=== PATIENT | female | born 1955 | race Caucasian/White ===

== ENCOUNTER → 2017-01-30 | Outpatient (CLI) | payer OTHER | LOC: MMPC 11:11 | PROVIDERS: ATTEND Physician Assistant | DX: B34.9 Viral infection, unspecified (principal) | CPT/HCPCS: 99213; G0463 ==

== ENCOUNTER 2017-04-03 01:40 | Inpatient (IN) | payer OTHER ==
[2017-04-03] MEDS ORDERED: ONDANSETRON 4 MG/2 ML VIAL IVP ONE (02:00)
[2017-04-03] MEDS ORDERED: NORMAL SALINE 10 ML SYRINGE FLUSH IVP PRN ×2 (02:00→05:09)
--- NOTE | 2017-04-03 02:02 | PDOC ---
General Adult HPI - General Chief Complaint: General Medical Stated Complaint: Nausea/Abdominal Discomfort Date Seen by Provider: 04/03/17 Time Seen by Provider: 02:02 - History of Present Illness Have you received a tetanus shot in the past 10 years?: Yes - Patient Home Medications Home Medications: Home Medications Paliperidone Palmitate [Invega Sustenna] 39 mg IM MONTHLY ml 01/30/17 RisperiDONE Tab [Risperdal Tab] 1 mg PO BEDTIME tab 01/30/17 - Patient Allergies Allergies/Adverse Reactions: Allergies Allergy/AdvReac Type Severity Reaction Status Date / Time Sulfa (Sulfonamide Allergy rash Verified 04/03/17 01:56 Antibiotics) Past Medical History - heen HEENT History: Denies History Cardiovascular History: Denies History Respiratory History: Denies History Gastrointestinal History: Denies History Genitourinary History: Denies History Endocrine History: Denies History Musculoskeletal History: Denies History Prosthesis or Implant: No Neurological History: Denies History Blood Disorders: Denies History Psychiatric History: Bi Polar Disorder, Other (please comment) Additional Psychiatric History: PER [facility] PSYCHOSIS. 04/21/14 381 HOLD History of Sexually Transmitted Diseases: No Cancer History: Denies History History of MDRO: No History of Other Communicable Diseases: No Alcohol Use: None Substance Use Type: None Previous Surgical History: Yes Type / Date of Surgery: [place] teeth extraction. Anesthesia Reactions: No Malignant Hyperthermia: No Significant Family History: No pertinent family hx Past Medical History Reviewed: Reviewed - No Changes ROS - Limitations ROS Limitations: No Limitations Constitution: REPORTS: Denies Symptoms Cardiovascular: REPORTS: Denies Cardiac Symptoms Respiratory: REPORTS: Denies Resp Symptoms Neurological: REPORTS: Denies Neuro Symptoms General Adult Exam - General Appearance General Appearance: POSITIVE: Alert, Cooperative, No Acute Distress - HEENT HEENT: POSITIVE: Head Inspection Nml, Eyes Inspection Nml - Neck Neck: POSITIVE: Normal Inspection - Respiratory Respiratory: POSITIVE: No Respiratory Distress - Cardiovascular Cardiovascular: POSITIVE: Regular Rate & Rhythm, No Murmur - Abdomen Abdomen: Soft: (All Quadrants), Normal Bowel Sounds: (All Quadrants), Denies Tenderness: (LLQ) (mild without rebound or gaurding), No Guarding: (All Quadrants), No Rebound: (All Quadrants) - Back Back: POSITIVE: Normal Inspection. NEGATIVE: CVA Tenderness - Neurological / Psychological Neurological: POSITIVE: Affect Apporpriate General Adult Progress - Results Reviewed by me Lab Results Reviewed: Yes Lab Results:: Laboratory Results 04/03/17 Range/Units 02:03 WBC 12.79 H (4.8-10.8) 10^3/uL RBC 4.75 (4.20-5.40) 10^6/uL Hgb 13.9 (12.0-16.0) g/dL Hct 42.2 (37.0-47.0) % MCV 88.8 (81-99) FL MCH 29.3 (27-31) PG MCHC 32.9 L (33-37) g/dL RDW Std Deviation 46.9 (39-50) fL RDW Coeff of Fransisca 14.8 H (11.5-14.5) % Plt Count 266 (140-350) 10*3/uL MPV 9.9 (7.4-12.2) FL Immature Gran % (Auto) 0.3 (0-5) % Neut % (Auto) 79.5 (50-80) % Lymph % (Auto) 13.3 (10-50) % [place] % (Auto) 6.5 (5-15) % Eos % (Auto) 0.2 (0-8) % Baso % (Auto) 0.2 (0-1) % Immature Gran # (Auto) 0.04 10*3/UL Neut # (Auto) 10.17 10*3/UL Lymph # (Auto) 1.70 10*3/uL [place] # (Auto) 0.83 H (0.3-0.8) 10*3/UL Eos # (Auto) 0.02 10*3/UL Baso # (Auto) 0.03 10*3/UL WBC Morphology Comment Normal morphology (NORM) Plt Morphology Comment Normal morphology (NORM) RBC Morph Comment Normal morphology (NORM) - Patient's Progress MDM / ED Course: Patient was given a dose of Zofran and a couple liters of IV fluids and is feeling much better. Her abdominal pain is basically completely resolved she has no nausea and is wanting to go home. Her CBC did show a slight elevation in her white blood cell count but given the regression in remission of her pain is seems unlikely that she has any significant intra-abdominal pathology and that this would likely be simply be margination or stress response from her gastroenteritis or from vomiting. Ultimately I have told her if her symptoms worsen at all she is to return for consideration of CT scan of her abdomen but she is able to start eating and drinking and for belly continues to improve then no further imaging should be required. Patient Care Time - Estimated PCT Patient Care Time (In Minutes): 35 Vital Signs - VS Reviewed Vital Signs Reviewed: Yes Discharge Clinical Impression: Gastroenteritis Discharge Disposition: Discharged to Home Condition: Stable Additional Instructions: Monitor symptoms closely be evaluated by her primary care provider or return to the emergency department for abdominal pain increases worsens or for unable to advance her diet to regular over the next few days. Return if your symptoms worsen such as abdominal pain cramping or other worrisome issues Follow-up with your primary care provider as soon as possible to discuss this occurrence Use Zofran as needed for nausea
[2017-04-03] MEDS: Sodium Chloride 0.9% 2,000 ML PRIMARY IV ONE ×2 (02:15→03:49)
[2017-04-03 02:24] LABS: BASOPHILS # (AUTO) 0.03 10*3/UL; BASOPHILS % (AUTO) 0.2 % (0-1); EOSINOPHILS # (AUTO) 0.02 10*3/UL; EOSINOPHILS % (AUTO) 0.2 % (0-8); HEMATOCRIT 42.2 % (37.0-47.0); HEMOGLOBIN 13.9 g/dL (12.0-16.0); MEAN CORPUSCULAR HEMOGLOBIN 29.3 PG (27-31); MEAN CORPUSCULAR HGB CONC 32.9 g/dL (33-37); MEAN CORPUSCULAR VOLUME 88.8 FL (81-99); MEAN PLATELET VOLUME 9.9 FL (7.4-12.2); MONOCYTES # (AUTO) 0.83 10*3/UL (0.3-0.8); MONOCYTES % (AUTO) 6.5 % (5-15); NEUTROPHILS # (AUTO) 10.17 10*3/UL; NEUTROPHILS % (AUTO) 79.5 % (50-80); RED BLOOD COUNT 4.75 10^6/uL (4.20-5.40)
[2017-04-03 02:25] LABS: PLATELET MORPHOLOGY COMMENT NORMAL MORPHOLOGY (NORM); RBC MORPHOLOGY COMMENT NORMAL MORPHOLOGY (NORM); WBC MORPHOLOGY COMMENT NORMAL MORPHOLOGY (NORM)
[2017-04-03 02:30] LABS: BLOOD UREA NITROGEN 12 mg/dL (7-22); BUN/CREATININE RATIO 13.33 (6-20); CALCIUM 8.9 mg/dL (8.7-10.7); EST GLOMERULAR FILTRATION > 60 (>60 ml/min/1.73m(2)); SERUM ALBUMIN 3.8 g/dL (3.5-4.8)
[2017-04-03 03:26] LABS: LIPASE 33241 IU/L (23-300)
[2017-04-03] MEDS ORDERED: MORPHINE SULFATE 4 MG/1 ML IVP ONE (03:33)
[2017-04-03 04:00] LABS: CHOL/HDL RATIO 2.9 RATIO (0-4.0); LDL CHOLESTEROL,CALCULATED 82.6 mg/dL
[2017-04-03] MEDS ORDERED: Sodium Chloride 0.9% 1,000 ML PRIMARY IV ONE (04:07)
[2017-04-03] MEDS ORDERED: HEPARIN 5000 UNIT/1 ML SUBCUT SCH (05:00)
[2017-04-03] MEDS ORDERED: LIDOCAINE W/ SODIUM BICARB 0.5 ML SYR SUBD PRN (05:09)
[2017-04-03] MEDS ORDERED: MORPHINE SULFATE 2 MG/1 ML IVP PRN (05:09)
[2017-04-03] MEDS ORDERED: ONDANSETRON 4 MG/2 ML VIAL IVP PRN (05:09)
--- NOTE | 2017-04-03 05:11 | DI ---
HISTORY: Pancreatitis. TECHNIQUE: Sonographic images of the abdomen were obtained and submitted for interpretation. FINDINGS: The liver is unremarkable in size and sonographic texture. No focal lesions are identifie d within the liver. No gallstones are identified. There is a small gallbladder polyp demonstrated. The gallbladder is not abnormally distended, and the gallbladder wall does not appear thickened. Th e intrahepatic and extrahepatic biliary systems are not dilated. The common bile duct is normal at 3 mm. The spleen is not enlarged. The pancreas appears echogenic. The visualized portions of the ao rta, and IVC are sonographically unremarkable. The kidneys are in anatomic position and are unremarkable in size, parenchymal thickness, and sonogra phic texture. There is no hydronephrosis, stone, or solid renal mass. The perinephric spaces are un remarkable. No mass or free fluid is identified in the upper abdomen. IMPRESSION: 1. Small gallbladder polyp. 2. Echogenic pancreas is a nonspecific finding. NOTE: The interpreting Radiologist was not present at the time of ultrasound interrogation.
[2017-04-03] MEDS: Sodium Chloride 0.9% 1,000 ML PRIMARY IV SCH ×2 (05:23→14:37)
[2017-04-03 06:59] LABS: AMPHETAMINE SCREEN NEGATIVE (NEG); CANNABINOID SCREEN,URINE NEGATIVE (NEG); COCAINE SCREEN NEGATIVE (NEG); METHADONE URINE SCREEN NEGATIVE (NEG); METHAMPHETAMINES SCREEN,URINE NEGATIVE (NEG); OPIATE SCREEN,URINE NEGATIVE (NEG); URINE SAMPLE TYPE CLEAN CATCH URINE; URINE SPECIFIC GRAVITY - MAN 1.021
--- NOTE | 2017-04-03 08:17 | PDOC ---
History and Physical - History of Present Illness History of Present Illness: This is a very nice 62-year-old female who [facility] with [facility] for a schizoaffective disorder on Risperdal when necessary and invega sustenna for schizophrenia. She is also a heavy smoker of 30 cigarettes a day. Comes in with some abdominal pain. Received some fluid and antiemetics patient improved in the ER for her lipase was 33,000 with elevated amylase and therefore was admitted. Ultrasound of her abdomen was done which is on unremarkable and LFTs are also normal. I have ordered a CT scan abdomen and pelvis which is pending and also repeat lipase considering that patient has almost no pain with this high level of lipase. I explained to her and her manager of case management what the pancreatitis is in the causes and treatment they agree with the above plan of nothing by mouth and fluids Past Medical History Medical History: Schizophrenia Tobacco Use: Current Every Day Smoker Do you dip or chew tobacco: No Substance Use Type: None Medication / Allergies Home Medications: Home Medications Medication Instructions Recorded Confirmed Type Paliperidone Palmitate [Invega 39 mg IM MONTHLY ml 01/30/17 04/03/17 History Sustenna] RisperiDONE Tab [Risperdal Tab] 1 mg PO BEDTIME tab 01/30/17 04/03/17 History Ondansetron Odt [Zofran Odt] 8 mg PO Q6H PRN #10 tab.rapdis 04/03/17 Rx Allergies/Adverse Reactions: Allergies Allergy/AdvReac Type Severity Reaction Status Date / Time Sulfa (Sulfonamide Allergy rash Verified 04/03/17 06:41 Antibiotics) Review of Systems - Eye Exam Eye Exam: DENIES: Negative System Review, Acuity Good, Acuity Fair, Acuity Poor , Glasses/Contacts, Vision Loss, Blurring, Redness, Diplopia, Catarats, Other, See HPI - Ear/Nose Exam Ear/Nose Exam: DENIES: Negative System Review, Decreased Hearing, Tinnitus, Otalgia, Sinus Pain, Rhinorrhea, Congestion, Anosmia, Epistaxis, Other, See HPI - Mouth/Throat Mouth/Throat Exam: DENIES: Negative System Review, Dental Problems, Oral Ulcers , Sore Throat, Hoarseness, Dysphagia, Dental Pain, Other, See HPI - Cardiovascular Cardiovascular: DENIES: Negative System Review, Chest Pain, Edema, Syncope, Palpitations, Orthopnea, Paroxysmal Nocturnal Dyspnea, Other, See HPI - Gastrointestinal Gastrointestinal / Abdominal: REPORTS: Nausea, Abdominal Pain - Neurological Neurologic: DENIES: Negative System Review, Headache, Numbness/Paresthesia, Tremors, Weakness, Seizures, Head Trauma, LOC, Dizziness, Confusion, Memory Loss , Difficulty Walking, Incoordination, Other, See HPI - Psychiatric Psychiatric: DENIES: Anhedonia, Anxiety, Depressed, Hopelessness, Hospitalization, Negative System Review, Other, Panic, Sadness, See HPI, Suicidality, Tearfullness Exam - Vitals Vital Signs: Vital Signs Temperature 98.9 F Temperature Source Temporal Artery Scan Pulse Rate [Pulse Oximeter] 78 Pulse Rate 80 Respiratory Rate 20 Blood Pressure [Right Arm] 130/82 Blood Pressure 150/78 Pulse Ox 93 Oxygen Delivery Method Room Air Height 4 ft 9 in Weight 43.091 kg - General General Appearance: POSITIVE: No Acute Distress, Cooperative - Head Head Exam: POSITIVE: Normal Inspection, Normocephalic, Atraumatic - Eye Eye Exam: POSITIVE: Normal Appearance, PERRL - Neck Neck Exam: POSITIVE: Normal Inspection - Respiratory Respiratory Exam: POSITIVE: Clear to Auscultation - Bilaterally, Breathing Non Labored, Normal To Percussion - Cardiovascular Cardiovascular Exam: POSITIVE: RRR, No Murmur, No Clicks, No Gallops - GI/Abdominal Additional GI/Abdominal Exam Details: Minimal tenderness no guarding or rebound - Extremities Extremities Exam: POSITIVE: Normal Capillary Refill, No Clubbing Present, No Edema Present - Neurological Neurological Exam: POSITIVE: Alert, Oriented x 3, CN II-XII Intact, No Facial Droop, Speech Intact / Clear - Psychiatric Psychiatric Exam: POSITIVE: Normal Affect Results - Labs CBC and BMP: 04/03/17 02:03 04/03/17 02:03 Labs - Last 24 Hours: Laboratory Results 04/03/17 Range/Units 06:07 Ur Collection Type Clean catch urine U Specif Grav (Refrac) 1.021 Urine Opiates Screen Negative (NEG) Ur Buprenorphine Negative (NEG) Ur Oxycodone Screen Negative (NEG) Urine Methadone Screen Negative (NEG) Ur Propoxyphene Screen Negative (NEG) Barbiturate Screen Negative (NEG) U Tricyclic Antidepress Negative (NEG) Phencyclidine Screen Negative (NEG) Amphetamines Screen Negative (NEG) U Methamphetamines Scrn Negative (NEG) Benzodiazepines Screen Negative (NEG) Cocaine Screen Negative (NEG) U Marijuana (THC) Screen Negative (NEG) Assessment and Plan - Patient Problems (1) Pancreatitis Current Visit: Yes Status: Acute Comment: Patient does not drink, alcohol level is below 10, triglycerides are within normal limits, ultrasound of her gallbladder shows no stones, labs are unremarkable LFTs, elevated lipase at 33,000 pain is minimal we'll repeat labs to make sure this is not an error were also order a CT abdomen and pelvis IV fluids and by mouth pain control (2) Bipolar disorder Current Visit: No Status: Acute
--- NOTE | 2017-04-03 09:19 | DI ---
CT ABD W/CN AND PELVIS W/CN,04/03/2017 8:08 AM: Clinical History: Abdominal pain and pancreatitis. Previous Exam: None at this facility. Findings: Multiple helically acquired CT images are obtained through the abdomen and pelvis following the intra venous administration of 65 cc of Isovue 300, and demonstrate clear lung bases. There is subsegmental atelectasis in the lung bases as well. The liver, gallbladder, spleen and adrenals are unremarkable. There is some fluid surrounding the herring creas although there is no evidence of pseudocyst or abscess. There is a dense cyst which appears to be involving the inferior pole of the left kidney, but also co ntacts the tail the pancreas. This measures 61 Hounsfield units. This cyst measures 2.2 cm in long ax is. There are multiple other renal hypodensities noted most of which are too small to characterize, but l ikely represent small simple cysts. The gallbladder is unremarkable. There is a trace amount of free fluid within the deep pelvis. The urinary bladder is unremarkable. Phleboliths are seen within the deep pelvis as well. The appendix is normal. The uterus is not well evaluated. Impression: 1. Trace amount of peripancreatic free fluid. Likely represents underlying pancreatitis however, ther e is no evidence of abscess nor pseudocyst. 2. Dense 2 cm left renal cyst in close approximation to the tail the pancreas, but this is believed t o be primary to the kidney. Consider a [address] for further evaluation. This would not be nec essary if there is a noncontrast image or if this has been worked up in the past.
[2017-04-03] MEDS: HEPARIN 5000 UNIT/1 ML SUBCUT SCH ×2 (09:56→17:42)
[2017-04-03] MEDS ORDERED: LORazepam 2 MG/1 ML VIAL IVP ONE (14:19)
[2017-04-03] MEDS ORDERED: NICOTINE 21 MG /DAY PATCH TRANSDERM SCH (14:30)
[2017-04-03] MEDS ORDERED: LORazepam 2 MG/1 ML VIAL IVP PRN (15:09)
[2017-04-04] MEDS: Sodium Chloride 0.9% 1,000 ML PRIMARY IV SCH ×2 (00:14→10:00)
[2017-04-04] MEDS: HEPARIN 5000 UNIT/1 ML SUBCUT SCH ×2 (02:31→08:34)
[2017-04-04 06:01] LABS: BASOPHILS # (AUTO) 0.03 10*3/UL; BASOPHILS % (AUTO) 0.3 % (0-1); EOSINOPHILS # (AUTO) 0.01 10*3/UL; EOSINOPHILS % (AUTO) 0.1 % (0-8); HEMATOCRIT 41.7 % (37.0-47.0); HEMOGLOBIN 13.4 g/dL (12.0-16.0); LYMPHOCYTES # (AUTO) 1.64 10*3/uL; MEAN CORPUSCULAR HEMOGLOBIN 29.2 PG (27-31); MEAN CORPUSCULAR HGB CONC 32.1 g/dL (33-37); MEAN CORPUSCULAR VOLUME 90.8 FL (81-99); MEAN PLATELET VOLUME 9.7 FL (7.4-12.2); MONOCYTES % (AUTO) 5.6 % (5-15); NEUTROPHILS # (AUTO) 6.77 10*3/UL; NEUTROPHILS % (AUTO) 75.5 % (50-80); RED BLOOD COUNT 4.59 10^6/uL (4.20-5.40)
[2017-04-04 06:09] LABS: BLOOD UREA NITROGEN 13 mg/dL (7-22); BUN/CREATININE RATIO 16.25 (6-20); CALCIUM 8.7 mg/dL (8.7-10.7); EST GLOMERULAR FILTRATION > 60 (>60 ml/min/1.73m(2)); LIPASE 753 IU/L (23-300); SERUM ALBUMIN 3.6 g/dL (3.5-4.8)
[2017-04-04 07:38] LABS: PLATELET MORPHOLOGY COMMENT NORMAL MORPHOLOGY (NORM); RBC MORPHOLOGY COMMENT NORMAL MORPHOLOGY (NORM); WBC MORPHOLOGY COMMENT NORMAL MORPHOLOGY (NORM)
[2017-04-04 08:01] VITALS: RESP 16
[2017-04-04] MEDS ORDERED: Patch Removal PATCH TRANSDERM SCH (09:00)
[2017-04-04] MEDS ORDERED: NICOTINE 21 MG /DAY PATCH TRANSDERM SCH ×2 (09:00)
[2017-04-04] MEDS: D5W 1,000 ML PRIMARY IV SCH ×2 (10:06→13:15)
--- NOTE | 2017-04-04 12:01 | PDOC(PROG) ---
Interval History: Patient feels great and has no complaints she thinks she feels much better and is back to her normal self we advanced her diet to clear and as tolerated her lipase is down to 600 nor abdominal pain whatsoever Objective : Data - Labs CBC and BMP: 04/04/17 05:55 04/04/17 05:55 Labs - Last 24 Hours: Laboratory Results 04/04/17 Range/Units 05:55 WBC 8.97 (4.8-10.8) 10^3/uL RBC 4.59 (4.20-5.40) 10^6/uL Hgb 13.4 (12.0-16.0) g/dL Hct 41.7 (37.0-47.0) % MCV 90.8 (81-99) FL MCH 29.2 (27-31) PG MCHC 32.1 L (33-37) g/dL RDW Std Deviation 48.2 (39-50) fL RDW Coeff of Fransisca 14.8 H (11.5-14.5) % Plt Count 224 (140-350) 10*3/uL MPV 9.7 (7.4-12.2) FL Immature Gran % (Auto) 0.2 (0-5) % Neut % (Auto) 75.5 (50-80) % Lymph % (Auto) 18.3 (10-50) % [place] % (Auto) 5.6 (5-15) % Eos % (Auto) 0.1 (0-8) % Baso % (Auto) 0.3 (0-1) % Immature Gran # (Auto) 0.02 10*3/UL Neut # (Auto) 6.77 10*3/UL Lymph # (Auto) 1.64 10*3/uL [place] # (Auto) 0.50 (0.3-0.8) 10*3/UL Eos # (Auto) 0.01 10*3/UL Baso # (Auto) 0.03 10*3/UL WBC Morphology Comment Normal morphology (NORM) Plt Morphology Comment Normal morphology (NORM) RBC Morph Comment Normal morphology (NORM) Sodium 149 H D (135-145) meq/L Potassium 4.1 (3.8-5.2) meq/L Chloride 118 H (98-112) meq/L Carbon Dioxide 19 L (23-33) meq/L Anion Gap 12 (5-20) BUN 13 (7-22) mg/dL Creatinine 0.8 (0.50-1.20) mg/dL Estimated GFR > 60 (>60 ml/min/1.73m(2)) BUN/Creatinine Ratio 16.25 (6-20) Glucose 67 L (78-110) mg/dL Calculated Osmolality 305.0 H (267-292) mOsm/kg Calcium 8.7 (8.7-10.7) mg/dL Total Bilirubin 0.4 (0.3-1.2) mg/dL AST 14 (8-39) IU/L ALT 22 (9-52) IU/L Alkaline Phosphatase 84 (38-126) IU/L Total Protein 6.5 (6.1-8.0) g/dL Albumin 3.6 (3.5-4.8) g/dL Globulin 2.9 (2.50-4.10) g/dL Albumin/Globulin Ratio 1.20 L (1.3-2.0) mg/g Amylase 546 H (30-110) U/L Lipase 753 H (23-300) IU/L Objective : Exam - General General Appearance: Cooperative - Respiratory Respiratory Exam: Clear to Auscultation - Bilaterally, Breathing Non Labored, Normal To Percussion - Cardiovascular Cardiovascular Exam: RRR, No Murmur, No Clicks - Extremities Extremities Exam: No Clubbing Present, No Edema Present - Neurological Neurological Exam: Alert, CN II-XII Intact, No Facial Droop Assessment and Plan - Patient Problems (1) Pancreatitis Current Visit: Yes Status: Acute Comment: Gallbladder pancreatitis idiopathic no real reason found CT scan and ultrasound of abdomen within normal limits LFTs within normal limits bili within normal limits patient's lipase is down to 600 from 33,001 advanced her diet if she tolerates that she can be discharged home (2) Bipolar disorder Current Visit: No Status: Acute Comment: I checked both meds she is on the date do not cause pancreatitis
[2017-04-04 13:13] VITALS: TEMP 98.8
[2017-04-04 14:35] LABS: BLOOD UREA NITROGEN 11 mg/dL (7-22); BUN/CREATININE RATIO 15.71 (6-20)
[2017-04-04 14:36] LABS: CALCIUM 8.4 mg/dL (8.7-10.7); EST GLOMERULAR FILTRATION > 60 (>60 ml/min/1.73m(2)); SERUM ALBUMIN 3.3 g/dL (3.5-4.8)
--- NOTE | 2017-04-04 15:23 | DCSUMMARY ---
Hospitalization Summary Hospital Course: Final Discharge Diagnosis: Current Visit Problems Problem Status Priority Diagnosed Code Gastroenteritis Acute K52.9 Pancreatitis Acute K85.90 Diagnostic Data, Laboratory Data, and Procedures of Signifigance: Laboratory Results 04/03/17 04/03/17 04/03/17 Range/Units 02:03 06:07 09:30 WBC 12.79 H (4.8-10.8) 10^3/uL RBC 4.75 (4.20-5.40) 10^6/uL Hgb 13.9 (12.0-16.0) g/dL Hct 42.2 (37.0-47.0) % MCV 88.8 (81-99) FL MCH 29.3 (27-31) PG MCHC 32.9 L (33-37) g/dL RDW Std Deviation 46.9 (39-50) fL RDW Coeff of Fransisca 14.8 H (11.5-14.5) % Plt Count 266 (140-350) 10*3/uL MPV 9.9 (7.4-12.2) FL Immature Gran % (Auto) 0.3 (0-5) % Neut % (Auto) 79.5 (50-80) % Lymph % (Auto) 13.3 (10-50) % [place] % (Auto) 6.5 (5-15) % Eos % (Auto) 0.2 (0-8) % Baso % (Auto) 0.2 (0-1) % Immature Gran # (Auto) 0.04 10*3/UL Neut # (Auto) 10.17 10*3/UL Lymph # (Auto) 1.70 10*3/uL [place] # (Auto) 0.83 H (0.3-0.8) 10*3/UL Eos # (Auto) 0.02 10*3/UL Baso # (Auto) 0.03 10*3/UL WBC Morphology Comment Normal morphology (NORM) Plt Morphology Comment Normal morphology (NORM) RBC Morph Comment Normal morphology (NORM) Sodium 140 (135-145) meq/L Potassium 3.6 L (3.8-5.2) meq/L Chloride 106 (98-112) meq/L Carbon Dioxide 24 (23-33) meq/L Anion Gap 10 (5-20) BUN 12 (7-22) mg/dL Creatinine 0.9 (0.50-1.20) mg/dL Estimated GFR > 60 (>60 ml/min/1.73m(2)) BUN/Creatinine Ratio 13.33 (6-20) Glucose 119 H (78-110) mg/dL Calculated Osmolality 290.0 (267-292) mOsm/kg Lactic Acid 1.2 (0.70-2.10) MMOL/L Calcium 8.9 (8.7-10.7) mg/dL Magnesium 2.0 (1.6-2.4) mg/dL Total Bilirubin 0.4 (0.3-1.2) mg/dL AST 18 (8-39) IU/L ALT 26 (9-52) IU/L Alkaline Phosphatase 87 (38-126) IU/L Total Protein 6.8 (6.1-8.0) g/dL Albumin 3.8 (3.5-4.8) g/dL Globulin 3.0 (2.50-4.10) g/dL Albumin/Globulin Ratio 1.20 L (1.3-2.0) mg/g Triglycerides 82 (44-200) mg/dL Cholesterol 151 (120-200) mg/dL LDL Cholesterol, Calc 82.600 mg/dL VLDL Cholesterol 16 (0-40) mg/dL HDL Cholesterol 52 (40-150) mg/dL Cholesterol/HDL Ratio 2.90 (0-4.0) RATIO Amylase 4898 H 2642 H (30-110) U/L Lipase 65112 H* 87908 H* (23-300) IU/L Ur Collection Type Clean catch urine U Specif Grav (Refrac) 1.021 Urine Opiates Screen Negative (NEG) Ur Buprenorphine Negative (NEG) Ur Oxycodone Screen Negative (NEG) Urine Methadone Screen Negative (NEG) Ur Propoxyphene Screen Negative (NEG) Barbiturate Screen Negative (NEG) U Tricyclic Antidepress Negative (NEG) Phencyclidine Screen Negative (NEG) Amphetamines Screen Negative (NEG) U Methamphetamines Scrn Negative (NEG) Benzodiazepines Screen Negative (NEG) Cocaine Screen Negative (NEG) U Marijuana (THC) Screen Negative (NEG) Serum Alcohol < 10 (0-10) mg/dL 04/04/17 04/04/17 Range/Units 05:55 14:20 WBC 8.97 (4.8-10.8) 10^3/uL RBC 4.59 (4.20-5.40) 10^6/uL Hgb 13.4 (12.0-16.0) g/dL Hct 41.7 (37.0-47.0) % MCV 90.8 (81-99) FL MCH 29.2 (27-31) PG MCHC 32.1 L (33-37) g/dL RDW Std Deviation 48.2 (39-50) fL RDW Coeff of Fransisca 14.8 H (11.5-14.5) % Plt Count 224 (140-350) 10*3/uL MPV 9.7 (7.4-12.2) FL Immature Gran % (Auto) 0.2 (0-5) % Neut % (Auto) 75.5 (50-80) % Lymph % (Auto) 18.3 (10-50) % [place] % (Auto) 5.6 (5-15) % Eos % (Auto) 0.1 (0-8) % Baso % (Auto) 0.3 (0-1) % Immature Gran # (Auto) 0.02 10*3/UL Neut # (Auto) 6.77 10*3/UL Lymph # (Auto) 1.64 10*3/uL [place] # (Auto) 0.50 (0.3-0.8) 10*3/UL Eos # (Auto) 0.01 10*3/UL Baso # (Auto) 0.03 10*3/UL WBC Morphology Comment Normal morphology (NORM) Plt Morphology Comment Normal morphology (NORM) RBC Morph Comment Normal morphology (NORM) Sodium 149 H D 142 D (135-145) meq/L Potassium 4.1 3.4 L (3.8-5.2) meq/L Chloride 118 H 109 (98-112) meq/L Carbon Dioxide 19 L 21 L (23-33) meq/L Anion Gap 12 12 (5-20) BUN 13 11 (7-22) mg/dL Creatinine 0.8 0.7 (0.50-1.20) mg/dL Estimated GFR > 60 > 60 (>60 ml/min/1.73m(2)) BUN/Creatinine Ratio 16.25 15.71 (6-20) Glucose 67 L 168 H (78-110) mg/dL Calculated Osmolality 305.0 H 296.0 H (267-292) mOsm/kg Lactic Acid (0.70-2.10) MMOL/L Calcium 8.7 8.4 L (8.7-10.7) mg/dL Magnesium (1.6-2.4) mg/dL Total Bilirubin 0.4 0.4 (0.3-1.2) mg/dL AST 14 17 (8-39) IU/L ALT 22 20 (9-52) IU/L Alkaline Phosphatase 84 68 (38-126) IU/L Total Protein 6.5 5.9 L (6.1-8.0) g/dL Albumin 3.6 3.3 L (3.5-4.8) g/dL Globulin 2.9 2.6 (2.50-4.10) g/dL Albumin/Globulin Ratio 1.20 L 1.20 L (1.3-2.0) mg/g Triglycerides (44-200) mg/dL Cholesterol (120-200) mg/dL LDL Cholesterol, Calc mg/dL VLDL Cholesterol (0-40) mg/dL HDL Cholesterol (40-150) mg/dL Cholesterol/HDL Ratio (0-4.0) RATIO Amylase 546 H (30-110) U/L Lipase 753 H (23-300) IU/L Ur Collection Type U Specif Grav (Refrac) Urine Opiates Screen (NEG) Ur Buprenorphine (NEG) Ur Oxycodone Screen (NEG) Urine Methadone Screen (NEG) Ur Propoxyphene Screen (NEG) Barbiturate Screen (NEG) U Tricyclic Antidepress (NEG) Phencyclidine Screen (NEG) Amphetamines Screen (NEG) U Methamphetamines Scrn (NEG) Benzodiazepines Screen (NEG) Cocaine Screen (NEG) U Marijuana (THC) Screen (NEG) Serum Alcohol (0-10) mg/dL History and Physical pertinent to Admission: This very nice 62-year-old female with past medical history significant for schizophrenia was admitted and brought to the ER for [place] mild abdominal pain was found to have an elevated lipase of 33,000 and admitted for pancreatitis CT scan abdomen and pelvis and ultrasound of her gallbladder were unremarkable and findings consistent with pancreatitis on CT scan no common bile duct the LFTs and bili all within normal limits alcohol tox screen was negative her psych meds do not) hepatitis according to [facility]ocrates. She was admitted directly hydrated amylase lipase were improved to around 500 patient is really no pain tolerated her meals without any pain strangely enough her sodium went up to 149 with hydration I consult with nephrology which recommended D5 to 15 hour for 2 hours and then 75 an hour repeat CMP was improved. Patient is wanting to be discharged she wants no more therapy treatments and I will like to go home at present time I told her that I could go home but is against my advice and it would be nice to monitor her sodium and give her some more D5. She is not willing to stay in the hospital after the nurse talk to her she did agree to stay the hospital I talked to her this morning but now she has made up her mind and she wants to leave she will leave any in any matter. We made her a follow-up appointment Dr. Garcia since she does not have a follow-up urinary care. We have offered her nicotine patch that she absolutely wants to go smoke Course of Hospitalization: On the date of discharge, the patient was examined: In my progress note from today Vitals reviewed and are listed below Vital Signs (24 hrs) Temp Pulse Resp BP Pulse Ox 04/04/17 13:00 98.8 F 98 16 134/80 98 04/04/17 08:00 97.6 F 71 16 151/81 93 04/04/17 05:00 98.3 F 83 20 147/81 93 04/03/17 20:31 98.2 F 73 18 120/68 89 04/03/17 15:57 98.2 F 66 18 141/80 90 Assessment and Plan: 1. As per discharge assessments above 2. Disposition: His skilled nursing 3. Condition on discharge, stable and improved. 4. Diet: regular diet 5. Activities: resume normal activities 6. Follow-Up: 1. [PCP] 2. 7. Medications at the Time of Discharge: Home Medications Medication Instructions Recorded Confirmed Type Paliperidone Palmitate [Invega 39 mg IM MONTHLY ml 01/30/17 04/03/17 History Sustenna] Temazepam 15 mg PO DAILY PRN 04/03/17 04/03/17 History 8. Time, care, counseling and coordination of care for this discharge is greater than 30 minutes. Exam - Vitals Vital Signs: Vital Signs Temperature 98.8 F Temperature Source Temporal Artery Scan Pulse Rate [Pulse Oximeter] 98 Pulse Rate 80 Respiratory Rate 16 Blood Pressure [Right Arm] 134/80 Blood Pressure 150/78 Pulse Ox 98 Oxygen Delivery Method Room Air Height 4 ft 9 in Weight 41.549 kg Patient Problems - Patient Problem List (1) Pancreatitis Current Visit: Yes Status: Acute (2) Bipolar disorder Current Visit: No Status: Acute
== END 2017-04-04 15:30 | disposition home or self-care (01) | DRG 440 ==
LOC: ER 01:40 → MED/SURG 04:14
PROVIDERS: ADMIT Internal Medicine; ATTEND Internal Medicine
DX: K85.90 Acute pancreatitis without necrosis or infection, unspecified (principal); K52.9 Noninfective gastroenteritis and colitis, unspecified; F20.9 Schizophrenia, unspecified; F31.9 Bipolar disorder, unspecified
CPT/HCPCS: 36415; 74177; 76705; 80053; 80061; 80305; 80320; 82150; 83605; 83690; 83735; 85025; 96361; 96374; 96375; 99285; J1644; J2060; J2270; J2405; J7030; J7060

== ENCOUNTER → 2017-04-10 | Outpatient (CLI) | payer OTHER | LOC: MMPC 09:00 | PROVIDERS: ATTEND Family Medicine | DX: K85.00 Idiopathic acute pancreatitis without necrosis or infection (principal) | CPT/HCPCS: 99213; G0463 ==